=== PATIENT | female | born 1985 | race Caucasian/White ===

== ENCOUNTER 2024-05-26 09:22 | Emergency (ER) | payer OTHER, SELFPAY ==
[2024-05-26] VITALS (8 sets, daily range): BP systolic 107–115; BP diastolic 71–84; PULSE 80–85; RESP 14–16; TEMP 36.4; O2SAT 97–100
--- NOTE | ~2024-05-26 | CT_ITS ---
CLINICAL INDICATION: Lower back pain. COMPARISON: None. TECHNIQUE: Computed tomography (CT) of the abdomen and pelvis was performed without intravenous contr ast. The dose-length product was 375.20 mGy-cm. FINDINGS/OBSERVATIONS: Visualized lower thorax:The bilateral lung bases are clear. The heart is of normal size, without pericardial effusion. A small hiatal hernia is present. Liver: The unenhanced liver is of normal size measuring 17 cm in longitudinal dimension. Gallbladder and biliary system: The gallbladder is only minimally distended, and otherwise unremarkab le. Pancreas: Limited evaluation of the pancreas secondary to the lack of intravenous contrast. Spleen: The unenhanced spleen is of normal size. Kidneys: The bilateral kidneys are without hydronephrosis or renal calculi. Adrenal glands: Unremarkable. Gastrointestinal tract: Unremarkable. Appendix:The air-filled appendix is of normal caliber (axial series, image 141 - 147). Vasculature: Unremarkable Lymph nodes: No pathologically enlarged or morphologically suspicious lymph nodes within the abdomen or pelvis Pelvic structures: The uterus is anteverted and anteflexed. The bladder is only minimally distended, but otherwise unremarkable without significant surrounding i nflammatory change or wall thickening. Body wall and musculoskeletal: No umbilical or inguinal hernias. The spine is unremarkable, without significant degenerative disease, lytic or blastic lesions identif ied. IMPRESSION: Unremarkable CT examination of the abdomen and pelvis, as detailed above. Specifically, no obstructive uropathy. Reviewed, dictated and finalized at location A.
[2024-05-26 09:58] LABS: Basophils Absolute Auto 0.1 K/mm3 (0.0-0.1); Basophils Percent Auto 0.7 % (0.2-1.2); Eosinophils Percent Auto 0.3 % (0-4.4); Hematocrit 42.5 % (37.0-47.0); Hemoglobin 14.7 g/dL (12.0-15.0); Immature Granulocyte Absolute 0.01 K/mm3 (0.00-0.031); Immature Granulocyte Percent A 0.1 % (0-0.5); Lymphocytes Absolute Auto 1.73 K/mm3 (0.9-3.2); Lymphocytes Percent Auto 25.5 % (18.3-44.2); Mean Corpuscular HGB Conc 34.6 g/dl (32-36); Mean Corpuscular Hemoglobin 30.9 pg (26-34); Mean Corpuscular Volume 89.3 fl (80-100); Mean Platelet Volume 9.2 fl (7.4-10.4); Monocytes Absolute Auto 0.4 K/mm3 (0.1-0.6); Monocytes Percent Auto 6.2 % (2.6-8.5); Neutrophils Absolute Auto 4.6 K/mm3 (1.3-6.7); Neutrophils Percent Auto 67.2 % (45.5-73.1); Platelet Count Result 212 k/mm3 (150-375); Red Blood Count 4.76 M/mm3 (4.2-5.4); Red Cell Distribution Width 12.2 % (11.5-14.5); White Blood Count 6.8 K/mm3 (4.5-10.0)
[2024-05-26 10:13] LABS: Alanine Aminotransferase 16 U/L (6-35); Albumin Level 4.8 g/dL (3.5-5.1); Alkaline Phosphatase 36 U/L (38-126); Anion Gap 10 mmol/L (4-12); Aspartate Amino Transferase 23 U/L (14-36); Bilirubin,Total 0.8 mg/dL (0.2-1.3); Blood Urea Nitrogen 9 mg/dL (7-17); Calcium 9.7 mg/dL (8.4-10.2); Carbon Dioxide 25 mmol/L (22-30); Chloride 104 mmol/L (98-107); Estimated CRCL calculation 84 ml/min; Estimated Glomerular Filt Rate > 60; Glucose 139 mg/dL (65-110); Potassium 4.1 mmol/L (3.4-5.0); Sodium 139 mmol/L (137-145)
[2024-05-26 10:18] LABS: BEDSIDEPREGUCG Negative (Negative)
[2024-05-26 10:45] LABS: Add Urine Microscopic? NO; Appearance Urine Clear (Clear); Bilirubin Urine Negative (Negative); Blood Urine Negative (Negative); Color Urine Yellow (Yellow); Glucose Urine UA Negative (Negative); Ketones Urine Trace mg/dL (Negative); Leukocyte Esterase Ur Negative LEU/UL (Negative); Nitrate Urine Negative (Negative); Protein Urine Negative (Negative); Specific Grav Ur 1.003 (1.001-1.035); Urobilinogen Urine 0.2 mg/dL (<2.0)
--- NOTE | 2024-05-26 12:26 | ED.BACK ---
HPI - Back Pain/Injury General Chief Complaint: Back Pain/Injury Stated Complaint: low back hip pain Time Seen by Provider: 05/26/24 12:13 History of Present Illness HPI Narrative: 39 Year old female presenting with lower back and hip pain. Patient states that for the last several weeks she has had recurrent pain in her glutes. States that it feels like severe cramping. Is worsened whenever she has a bowel movement. States that she has been struggling with a lot of constipation. States that sometimes she is unable to get comfortable because lying on her back and bottom makes the pain worse. Sometimes the pain goes down her legs. Reports random scattered paresthesias but no saddle anesthesia or bladder or bowel incontinence. No fevers. Recently treated for a UTI. No further complaints. No recent trauma. Related Data Allergies Allergy/AdvReac Type Severity Reaction Status Date / Time No Known Allergies Allergy Verified 05/26/24 09:24 Review of Systems Review of Systems: All systems reviewed & are unremarkable except as noted in HPI and below PMFSH Family History Family History Mother Family history of hypercholesterolemia Father Family history of cardiovascular disease Social History Social History Alcohol intake: current Exam Narrative: GENERAL: Well-appearing, well-nourished, and in no acute distress. HEAD: Normocephalic, atraumatic. EYES: PERRLA and EOMI. ENT: Grossly unremarkable NECK: Supple. CHEST: No respiratory distress. HEART: Regular rate and rhythm ABDOMEN: Soft, nontender, nondistended EXTREMITIES: Normal range of motion. BACK: no midline tenderness; +bilateral paraspinal tenderness in lumbar region extending into bilateral upper buttocks SKIN: Warm, dry, no rash. NEURO: No focal deficits. Alert and oriented x3. PSYCH: Normal mood and affect. Course Vital Signs Vital signs: Vital Signs Temperature 97.6 F 05/26/24 09:32 Pulse Rate 85 05/26/24 09:32 Respiratory Rate 16 05/26/24 09:32 Blood Pressure 107/71 05/26/24 09:32 Pulse Oximetry 99 05/26/24 09:32 Oxygen Delivery Room Air 05/26/24 09:32 Temperature 97.6 F 05/26/24 09:32 Pulse Rate 85 05/26/24 09:32 Respiratory Rate 14 05/26/24 12:01 Blood Pressure 114/79 05/26/24 12:01 Pulse Oximetry 100 05/26/24 12:01 Oxygen Delivery Room Air 05/26/24 09:32 MDM - Back Pain/Injury MDM Narrative Medical decision making narrative: 39-year-old female presenting with lower back and hip pain for several weeks. Vitals are stable. Neurologically intact. Denies red flag symptoms. CT abdomen pelvis obtained from triage shows no acute abnormalities. Blood work is unremarkable. UA is unremarkable will check Mag and CK. Will treat Toradol and Flexeril. CK magnesium within normal limits. On re-evaluation of the patient states that she has had some relief from the Toradol and Flexeril. Will send in for some Flexeril and also start her on MiraLax for the ongoing constipation. Recommend close PCP follow-up. Appropriate return precautions given. She is agreeable this plan. Discharged in stable condition. Differential Diagnosis Differential diagnosis: Likely lumbar radiculopathy, sciatica, strain of lumbar region and other (UTI, muscle spasms) Medical Records Attestation: I reviewed the patient's medical records. Lab Data Attestation: I reviewed the patient's lab results. 05/26/24 09:52 05/26/24 09:52 Labs: Lab Results 05/26/24 05/26/24 05/26/24 Range/Units 09:52 10:00 10:17 WBC 6.8 (4.5-10.0) K/mm3 RBC 4.76 (4.2-5.4) M/mm3 Hgb 14.7 (12.0-15.0) g/dL Hct 42.5 (37.0-47.0) % MCV 89.3 (80-100) fl MCH 30.9 (26-34) pg MCHC 34.6 (32-36) g/dl RDW 12.2 (11.5-14.5) % Plt Count 212 (150-375) k/mm3 MPV 9.2 (7.
[2024-05-26] MEDS: KETOROLAC 30 MG/ML VIAL (*BKC) IM (12:32)
[2024-05-26] MEDS: CYCLOBENZAPRINE HCL 10 MG TABLET PO (12:33)
--- NOTE | 2024-05-26 12:45 | PC.NURSE ---
Lab called to add on ordered magnesium and CK.
[2024-05-26 12:55] LABS: Magnesium 1.9 mg/dL (1.6-2.3)
[2024-05-26 13:07] LABS: Creatine Kinase 50 U/L (30-135)
== END 2024-05-26 14:38 | disposition home or self-care (01) ==
PROVIDERS: Physician Assistant; Emergency Provider Emergency Medicine; PCP Emergency Medicine
DX: M62.830 Muscle spasm of back (principal); M54.50 Low back pain, unspecified; K59.00 Constipation, unspecified
CPT/HCPCS: 36415; 74176; 80053; 81003; 81025; 82550; 83735; 85025; 96372; 99284; A9270; J1885

== ENCOUNTER 2024-06-18 12:42 | Outpatient (RCR) | payer OTHER, SELFPAY | END 2024-09-14 09:40 | disposition home or self-care (01) | LOC: ANHDMC 12:42 | PROVIDERS: PCP Emergency Medicine; Visit Provider Emergency Medicine | DX: E11.65 Type 2 diabetes mellitus with hyperglycemia (principal); Z71.89 Other specified counseling | CPT/HCPCS: G0108 ==

== ENCOUNTER 2024-07-10 07:18 | Outpatient (CLI) | payer OTHER, SELFPAY ==
--- NOTE | ~2024-07-10 | MR_ITS ---
EXAMINATION: MR brain/brain stem wo/w con DATE: 07/10/2024 07:54 INDICATION: Headache, muscle pain, vision changes, tremor and paresthesias. TECHNIQUE: Magnetic resonance imaging (MRI) of the brain and brainstem was performed without and with 13 mL Multihance intravenous contrast. Sequences included sagittal and axial T1-weighted SE, axial d iffusion-weighted FS SE, axial 3D SWAN, axial T2-weighted FLAIR, and axial T2-weighted FSE. Postcontr ast axial and coronal T1-weighted SE was obtained. Apparent diffusion coefficient (ADC) maps were cre ated. COMPARISON: None. FINDINGS: There are no areas of restricted diffusion to suggest acute infarction. A tiny linear T2 hyperintense and enhancing vessel extends through a 10 x 6 mm region of subtle enhancement in a gyrus of the righ t frontal lobe. There is mild associated signal loss on susceptibility weighted imaging but without s urrounding vasogenic edema or appreciable mass effect. Also on the susceptibility weighted imaging is a small larger caliber low signal intensity vessel extending along the deep margin of the enhancing lesion. Constellation of findings would be most consistent with a developmental venous anomaly. Addit ional small focus of susceptibility artifact at the right lentiform nucleus which could represent eit her dystrophic calcification or a tiny focus of chronic microhemorrhage. No acute intracranial hemorr dian, mass effect or other abnormally enhancing lesions. The ventricles are symmetric and normal in size. There are no abnormal extra-axial fluid collections. Flow voids are seen in the cerebral arteri es on the T2-weighted sequences consistent with their expected patency. Left vertebral artery is lizzy nant. Visualized orbits and soft tissues are unremarkable. Mild mucosal thickening in the bilateral e thmoid sinuses. IMPRESSION: 1. 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 No acute intracranial process. 2. Single tiny focus of susceptibility artifact in the right lentiform nucleus most likely related to dystrophic calcification or differential would include old blood products related to chronic microhe morrhage. Reviewed, dictated and finalized at location B. [employer] IMPRESSION: 1. 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 No acute intracran ial process. 2. Single tiny focus of susceptibility artifact in the right lentiform nucleus most likely related to dystrophic calcification or differential would include o ld blood products related to chronic microhemorrhage.
== END 2024-07-10 07:19 | disposition home or self-care (01) ==
PROVIDERS: PCP Emergency Medicine; Visit Provider Emergency Medicine
DX: R25.1 Tremor, unspecified (principal); H53.9 Unspecified visual disturbance; Q28.3 Other malformations of cerebral vessels
CPT/HCPCS: 70553